=== PATIENT | male | born 1980 | race Hispanic/Latino ===

== ENCOUNTER 2019-01-31 17:19 | Emergency (ER) | payer MEDICAID, SELFPAY ==
[~2019-01-31] VITALS: Ht 193 cm; Wt 150.0 kg
[2019-01-31] MEDS ORDERED: PANTOPRAZOLE 40MG INJ (PROTONIX) (C9113) IV ONE (18:15)
[2019-01-31 18:45] LABS: BASO # 0.1 10^3/uL (0.0-0.2); BASO % 0.4 % (0.0-1.0); EOS # 0.2 10^3/uL (0.0-0.50); EOS % 1.3 % (0.0-3.0); HEMATOCRIT 49.5 % (42.0-52.0); LYMPH # 2.7 10^3/uL (1.5-4.5); LYMPH % 24.3 % (24.0-44.0); MEAN CORPUSCULAR HEMOGLOBIN 30.1 pg (27.0-33.0); MEAN CORPUSCULAR HGB CONC 34.3 g/dl (32.0-36.5); MEAN CORPUSCULAR VOLUME 87.6 fl (80.0-96.0); MONO % 8.9 % (0.0-5.0); NEUTROPHILS # 7.2 10^3/uL (1.8-7.7); NEUTROPHILS % 64.4 % (36.0-66.0); PLATELET COUNT, AUTOMATED 202 10^3/uL (150-450); RED BLOOD COUNT 5.65 10^6/uL (4.30-6.10); WHITE BLOOD COUNT 11.2 10^3/uL (4.0-10.0)
[2019-01-31 19:21] LABS: ALBUMIN 3.9 GM/DL (3.2-5.2); ALT/SGPT 131 U/L (12-78); BILIRUBIN,DIRECT 0.2 MG/DL (0.0-0.2); BILIRUBIN,TOTAL 0.4 MG/DL (0.2-1.0); BLOOD UREA NITROGEN 15 MG/DL (7-18); CALCIUM LEVEL 8.5 MG/DL (8.5-10.1); CARBON DIOXIDE LEVEL 27 MEQ/L (21-32); CHLORIDE LEVEL 106 MEQ/L (98-107); CPK CREATINE PHOSPHOKINASE 329 U/L (39-308); GLOMERULAR FILTRATION RATE > 60.0 (>60); GLUCOSE, FASTING 102 MG/DL (70-100); LIPASE 159 U/L (73-393); MB/CK RELATIVE INDEX 0.79 (< OR =4); POTASSIUM SERUM 3.4 MEQ/L (3.5-5.1); SODIUM LEVEL 142 MEQ/L (136-145); TOTAL PROTEIN 7.4 GM/DL (6.4-8.2); TROPONIN I 0.05 NG/ML (< 0.10)
--- NOTE | 2019-01-31 20:26 | REP ---
Clinical: Right upper quadrant pain. Technique: Real time vaca scale ultrasound examination using curved array transducer. Findings: Diffuse fatty infiltration to the liver noted without focal hepatic lesion. Visualized portions of the pancreas are unremarkable but limited due to interposed bowel gas and body habitus. The gallbladder is normal and without gallstones, wall thickening, or pericholecystic fluid. No biliary ductal dilatation is appreciated and the common bile duct measures 4.3 mm diameter. The right kidney is normal in reniform shape without hydronephrosis and measures 13.8 x 5.6 x 6.1 cm. Impression: Hepatic steatosis. Normal gallbladder and biliary system. Electronically Signed by Otf Olvera MD 01/31/2019 08:18 P
[2019-01-31] MEDS ORDERED: ISOVUE-370 76% 100ML VIAL (Q9967) As Ordered ONE (20:54)
[2019-01-31] MEDS ORDERED: cloNIDine 0.1 MG TAB PO ONE (21:00)
--- NOTE | 2019-01-31 21:30 | ECGEPIP ---
Stationary ECG Study [facility] - ED Test Date: 2019-01-31 Pat Name: SYDNEE MONTENEGRO Department: Room: - Gender: M [employer]: [facility] : 1980 Requested By: VINEET DOMINGUEZ PA-C Order Number: [id number] Reading MD: Pepe Thomas Measurements Intervals [place] Rate: 77 P: 34 KS: 186 QRS: -16 QRSD: 117 T: 127 QT: 395 QTc: 449 Interpretive Statements SINUS RHYTHM POSSIBLE LEFT ATRIAL ENLARGEMENT Incomplete right bundle branch block LEFT VENTRICULAR HYPERTROPHY AND ST-T CHANGE Comparison tracing not on file Electronically Signed On 01-31-2019 21:30:28 EDT by Pepe Thomas
--- NOTE | 2019-01-31 21:35 | REP ---
Clinical: Pain and difficulty swallowing. Technique: Axial contrast enhanced images from the skull base to the thoracic inlet with coronal and sagittal re-formations using 100 ml Isovue 370 intravenous contrast material. Findings: The nasopharynx, oropharynx, hypopharynx and trachea and esophagus to the level of the thoracic inlet appear normal. The airway remains patent, midline and unremarkable. The epiglottis is normal. The esophagus is unremarkable. The surrounding soft tissues including parapharyngeal and retropharyngeal soft tissues structures are symmetric and normal. Parapharyngeal spaces and associated neurovascular structures and surrounding fat are normal. No significant adenopathy. Bilateral parotid and submandibular glands are normal. The osseous structures are intact. The sinuses and mastoid air cells are clear. Impression: Normal contrast enhanced CT of the neck. Electronically Signed by Otf Olvera MD 01/31/2019 09:27 P
[2019-01-31] MEDS ORDERED: LABETALOL HCL 100 MG/20 ML VIAL IV STA (22:29)
[2019-01-31 22:56] VITALS: BP 202/110
[2019-01-31] MEDS ORDERED: PROT1TAB2 PO (23:46)
[2019-01-31] MEDS ORDERED: SUCR1SS PO (23:46)
[2019-01-31] MEDS ORDERED: LOSA50TA88 PO (23:46)
[2019-01-31] MEDS ORDERED: HYDR25TAB PO (23:46)
[2019-01-31 23:55] VITALS: BP 174/86
== END 2019-01-31 23:59 | disposition home or self-care (01) ==
LOC: M ED 17:19
DX: I10 Essential (primary) hypertension (principal); K21.9 Gastro-esophageal reflux disease without esophagitis; R94.5 Abnormal results of liver function studies; K20.9 Esophagitis, unspecified; K22.2 Esophageal obstruction; I45.19 Other right bundle-branch block; I51.7 Cardiomegaly; G47.00 Insomnia, unspecified; E66.9 Obesity, unspecified; K76.0 Fatty (change of) liver, not elsewhere classified; Z72.0 Tobacco use; Z88.0 Allergy status to penicillin
CPT/HCPCS: 70491; 76705; 80048; 80076; 81001; 82550; 82553; 83690; 85025; 87880; 93005; 96374; 96375; 99284; C9113; Q9967

== ENCOUNTER → 2019-03-19 | Outpatient (REF) | payer OTHER ==
[~2019-03-19] MED LIST: HYDR25TAB PO; LOSA50TA88 PO; PROT1TAB2 PO; SUCR1SS PO
[2019-03-19 12:12] LABS: BASO % 0.2 % (0.0-1.0); EOS # 0.2 10^3/uL (0.0-0.50); EOS % 1.7 % (0.0-3.0); HEMATOCRIT 48.2 % (42.0-52.0); HEMOGLOBIN 16.4 g/dl (13.5-17.5); LYMPH # 2.6 10^3/uL (1.5-4.5); LYMPH % 28.2 % (24.0-44.0); MEAN CORPUSCULAR HEMOGLOBIN 30.1 pg (27.0-33.0); MEAN CORPUSCULAR VOLUME 88.6 fl (80.0-96.0); MONO # 0.7 10^3/uL (0.0-0.8); MONO % 7.7 % (0.0-5.0); NEUTROPHILS # 5.6 10^3/uL (1.8-7.7); NEUTROPHILS % 61.8 % (36.0-66.0); PLATELET COUNT, AUTOMATED 237 10^3/uL (150-450); RED BLOOD COUNT 5.44 10^6/uL (4.30-6.10); WHITE BLOOD COUNT 9.1 10^3/uL (4.0-10.0)
[2019-03-19 12:32] LABS: ALBUMIN 4.1 GM/DL (3.2-5.2); ALT/SGPT 71 U/L (12-78); BILIRUBIN,TOTAL 0.4 MG/DL (0.2-1.0); BLOOD UREA NITROGEN 11 MG/DL (7-18); CARBON DIOXIDE LEVEL 27 MEQ/L (21-32); CHLORIDE LEVEL 104 MEQ/L (98-107); CHOLESTEROL LEVEL 169 MG/DL (<200); CHOLESTEROL RISK RATIO 4.567 (<5); FREE T4 0.93 NG/DL (0.76-1.46); GLOMERULAR FILTRATION RATE > 60.0 (>60); GLUCOSE, FASTING 109 MG/DL (70-100); HDL CHOLESTEROL 37 MG/DL (>40); LDL CHOLESTEROL 94 MG/DL (<100); NON-HDL-C 132 MG/DL; POTASSIUM SERUM 3.5 MEQ/L (3.5-5.1); SODIUM LEVEL 139 MEQ/L (136-145); TOTAL PROTEIN 7.5 GM/DL (6.4-8.2); TRIGLYCERIDES LEVEL 188 MG/DL (<150)
[2019-03-19 12:34] LABS: TOTAL 25(OH) VITAMIN D 24.6 NG/ML (30.0-100.0)
[2019-03-19 12:36] LABS: APPEARANCE, URINE CLEAR (CLEAR); BACTERIA, URINE AUTO NEGATIVE (NEGATIVE); BILIRUBIN, URINE AUTO NEGATIVE (NEGATIVE); BLOOD, URINE BLOOD 1+ (NEGATIVE); COLOR, URINE YELLOW (YELLOW); GLUCOSE, URINE (UA) AUTO NEGATIVE (NEGATIVE); KETONE, URINE AUTO NEGATIVE (NEGATIVE); LEUKOCYTE ESTERASE, URINE AUTO NEGATIVE (NEGATIVE); NITRITE, URINE AUTO NEGATIVE (NEGATIVE); PROTEIN, URINE AUTO NEGATIVE (NEGATIVE); RBC, URINE AUTO 1 /HPF (0-3); SPECIFIC GRAVITY URINE AUTO 1.011 (1.002-1.035); SQUAMOUS EPITHELIAL CELL UR AU 0 /HPF (0-6); UROBILINOGEN, URINE AUTO 0.2 mg/dL (0.0-2.0); WBC, URINE AUTO 0 /HPF (0-3)
[2019-03-19 13:33] LABS: HEMOGLOBIN A1c 6.2 %
[2019-03-21 00:06] LABS: Lyme Disease IgG/IgM Antibodie <0.91 ISR (0.00-0.90); Lyme Disease IgM Ab Quantitati <0.80 index (0.00-0.79)
== END ==
LOC: M LAB REF 11:42
PROVIDERS: ATTEND Family Medicine
DX: Z13.228 Encounter for screening for other metabolic disorders (principal)

== ENCOUNTER → 2019-07-23 | Outpatient (CLI) | payer OTHER ==
--- NOTE | 2019-07-24 01:32 | REP ---
Clinical: Lower back pain. Technique: AP, lateral, bilateral oblique and coned-down views of the lumbosacral spine. Findings: Alignment and lordosis maintained. Mild/moderate multilevel degenerative changes include endplate sclerosis with marginal spurring/osteophyte formation as well as very minimal disc space narrowing primarily involving L5-S1 and L1-2. No acute fracture / compression injury or subluxation. Impression: Mild/moderate multilevel degenerative spondylosis. Electronically Signed by Otf Olvera MD 07/24/2019 01:24 A
== END ==
LOC: M WUC 17:22
PROVIDERS: ATTEND Physician Assistant
DX: M54.5 Low back pain (principal)

== ENCOUNTER → 2019-10-10 | Outpatient (CLI) | payer OTHER ==
--- NOTE | 2019-10-10 18:33 | REP ---
Right wrist series: Four views. History: Wrist pain. Findings: Four views right wrist demonstrate early osteophytic lipping at the first carpometacarpal articulation. There are two accessory ossicles adjacent to the fifth carpometacarpal articulation. There is a small accessory ossicle dorsally on the lateral radiograph at the level of the triquetrum. This may be an old injury. No acute fracture is seen. Impression: No acute fracture seen. Accessory ossicle dorsally at the level of the triquetrum. Accessory ossicles adjacent to the fifth carpometacarpal articulation and mild spurring at the first carpometacarpal articulation. Electronically Signed by Yfn Nelson MD 10/10/2019 08:01 P
== END ==
LOC: M WUC 17:56
PROVIDERS: ATTEND Physician Assistant
DX: M25.741 Osteophyte, right hand (principal)

== ENCOUNTER → 2019-10-17 | Outpatient (REF) | payer OTHER, MEDICAID ==
[2019-10-17 18:27] LABS: ALBUMIN 3.6 GM/DL (3.2-5.2); ALT/SGPT 76 U/L (12-78); BILIRUBIN,TOTAL 0.6 MG/DL (0.2-1.0); BLOOD UREA NITROGEN 12 MG/DL (7-18); CALCIUM LEVEL 8.3 MG/DL (8.5-10.1); CARBON DIOXIDE LEVEL 32 MEQ/L (21-32); CHLORIDE LEVEL 101 MEQ/L (98-107); CREATININE FOR GFR 0.85 MG/DL (0.70-1.30); GLOMERULAR FILTRATION RATE > 60.0 (>60); GLUCOSE, FASTING 145 MG/DL (70-100); POTASSIUM SERUM 3.7 MEQ/L (3.5-5.1); SODIUM LEVEL 141 MEQ/L (136-145); TOTAL PROTEIN 7.2 GM/DL (6.4-8.2)
[2019-10-17 18:48] LABS: HEMOGLOBIN A1c 6.1 %
== END ==
LOC: M LAB REF 17:13
PROVIDERS: ATTEND Family Medicine
DX: R73.03 Prediabetes (principal)

== ENCOUNTER → 2019-11-10 | Outpatient (CLI) | payer OTHER ==
[~2019-11-10] MED LIST changes: +CONRAY-43 43% 50ML VIAL (Q9960) As Ordered ONE; +LIDOCAINE 1% MDV 20ML VIAL As Ordered ONE; +methylPREDNISolone SUSP 40 MG/ML (DEPO-medrol) VIAL (J1030) As Ordered ONE
--- NOTE | 2019-11-10 19:05 | REP ---
RIGHT EXTENSOR CARPI ULNARIS AT THE INSERTION SITE INJECTION The procedure was performed under the direct supervision of Dr. Nelson. The benefits and risks including but not limited to pain infection bleeding and anaphylaxis were explained to the patient and informed consent was obtained. The right extensor carpi ulnaris insertion site was localized using fluoroscopic guidance. The skin was prepped and draped in a sterile fashion. 1% lidocaine was used as a local anesthetic. Using fluoroscopic guidance a 25-gauge needle was inserted. 0.5 ml of Conray 43 was injected to verify placement. A ml of a solution containing 1 ml of 1% lidocaine and 1 ml of Depo-Medrol 40 mg injected. The needle was then removed. The patient tolerated the procedure well and there were no immediate complications. Less than 6 seconds of fluoroscopy time was utilized for this procedure. Electronically Signed by ADI Pack 11/10/2019 04:03 P Electronically Signed by Yfn Nelson MD 11/10/2019 06:55 P
== END ==
LOC: M RADPRO 11:24
PROVIDERS: ATTEND Orthopaedic Surgery Sports Medicine
DX: M70.841 Other soft tissue disorders related to use, overuse and pressure, right hand (principal)
CPT/HCPCS: 20606; 77002; J1030; Q9960

== ENCOUNTER → 2020-01-09 | Outpatient (REF) | payer OTHER ==
[~2020-01-09] MED LIST changes: -CONRAY-43 43% 50ML VIAL (Q9960) As Ordered ONE; -LIDOCAINE 1% MDV 20ML VIAL As Ordered ONE; -methylPREDNISolone SUSP 40 MG/ML (DEPO-medrol) VIAL (J1030) As Ordered ONE
[2020-01-09 17:58] LABS: ALBUMIN 3.8 GM/DL (3.2-5.2); ALT/SGPT 87 U/L (12-78); BASO # 0.1 10^3/uL (0.0-0.2); BASO % 0.5 % (0.0-1.0); BILIRUBIN,TOTAL 0.4 MG/DL (0.2-1.0); BLOOD UREA NITROGEN 13 MG/DL (7-18); CALCIUM LEVEL 8.9 MG/DL (8.5-10.1); CARBON DIOXIDE LEVEL 34 MEQ/L (21-32); CHLORIDE LEVEL 101 MEQ/L (98-107); CHOLESTEROL LEVEL 176 MG/DL (<200); CHOLESTEROL RISK RATIO 5.333 (<5); CREATININE FOR GFR 0.86 MG/DL (0.70-1.30); EOS # 0.3 10^3/uL (0.0-0.5); EOS % 2.9 % (0.0-3.0); GLOMERULAR FILTRATION RATE > 60.0 (>60); GLUCOSE, FASTING 111 MG/DL (70-100); HDL CHOLESTEROL 33 MG/DL (>40); HEMATOCRIT 50.3 % (42.0-52.0); HEMOGLOBIN 16.7 g/dl (13.5-17.5); LDL CHOLESTEROL 87 MG/DL (<100); LYMPH # 2.8 10^3/uL (1.5-5.0); LYMPH % 27.3 % (24.0-44.0); MEAN CORPUSCULAR HEMOGLOBIN 29.1 pg (27.0-33.0); MEAN CORPUSCULAR HGB CONC 33.2 g/dl (32.0-36.5); MEAN CORPUSCULAR VOLUME 87.8 fl (80.0-96.0); MONO # 0.9 10^3/uL (0.0-0.8); MONO % 8.3 % (0.0-5.0); NEUTROPHILS # 6.3 10^3/uL (1.5-8.5); NEUTROPHILS % 60.3 % (36.0-66.0); NON-HDL-C 143 MG/DL; PLATELET COUNT, AUTOMATED 254 10^3/uL (150-450); POTASSIUM SERUM 3.3 MEQ/L (3.5-5.1); RED BLOOD COUNT 5.73 10^6/uL (4.30-6.10); SODIUM LEVEL 139 MEQ/L (136-145); TOTAL PROTEIN 7.6 GM/DL (6.4-8.2); TRIGLYCERIDES LEVEL 279 MG/DL (<150); WHITE BLOOD COUNT 10.4 10^3/uL (4.0-10.0)
[2020-01-09 18:00] LABS: HEMOGLOBIN A1c 6.6 %
[2020-01-09 18:01] LABS: TOTAL 25(OH) VITAMIN D 22.7 NG/ML (30.0-100.0)
== END ==
LOC: M LAB REF 17:01
PROVIDERS: ATTEND Family Medicine
DX: R73.03 Prediabetes (principal)

== ENCOUNTER → 2020-01-31 | Outpatient (CLI) | payer OTHER ==
--- NOTE | 2020-02-01 06:36 | REP ---
CHEST, PA AND LATERAL: No comparisons. There is no evidence of acute infiltrate. No pleural effusion is seen. The heart is normal in size. The mediastinal silhouette is unremarkable. The visualized osseous structures are intact. There is diffuse degenerative changes of the spine. There are old right rib fractures noted. IMPRESSION: No acute pulmonary disease. Electronically Signed by Bhavin Casanova MD 02/01/2020 10:54 A
== END ==
LOC: M WUC 14:58
PROVIDERS: ATTEND Physician Assistant
DX: R05 Cough (principal)
CPT/HCPCS: 71046; 87502; U0002

== ENCOUNTER → 2020-02-24 | Outpatient (CLI) | payer OTHER ==
[2020-02-24 17:30] LABS: BASO % 0.2 % (0.0-1.0); EOS # 0.2 10^3/uL (0.0-0.5); EOS % 2.2 % (0.0-3.0); HEMOGLOBIN 15.5 g/dl (13.5-17.5); LYMPH # 2.4 10^3/uL (1.5-5.0); LYMPH % 27.7 % (24.0-44.0); MEAN CORPUSCULAR HEMOGLOBIN 28.8 pg (27.0-33.0); MEAN CORPUSCULAR VOLUME 87.2 fl (80.0-96.0); MONO # 0.7 10^3/uL (0.0-0.8); MONO % 8.7 % (0.0-5.0); NEUTROPHILS # 5.1 10^3/uL (1.5-8.5); NEUTROPHILS % 59.7 % (36.0-66.0); PLATELET COUNT, AUTOMATED 238 10^3/uL (150-450); RED BLOOD COUNT 5.39 10^6/uL (4.30-6.10); WHITE BLOOD COUNT 8.5 10^3/uL (4.0-10.0)
[2020-02-24 17:44] LABS: ALBUMIN 3.7 GM/DL (3.2-5.2); ALT/SGPT 71 U/L (12-78); BILIRUBIN,TOTAL 0.5 MG/DL (0.2-1.0); BLOOD UREA NITROGEN 12 MG/DL (7-18); CARBON DIOXIDE LEVEL 32 MEQ/L (21-32); CHLORIDE LEVEL 101 MEQ/L (98-107); CPK CREATINE PHOSPHOKINASE 297 U/L (39-308); CREATININE FOR GFR 0.87 MG/DL (0.70-1.30); FREE T4 1.03 NG/DL (0.76-1.46); GLOMERULAR FILTRATION RATE > 60.0 (>60); GLUCOSE, FASTING 85 MG/DL (70-100); MB/CK RELATIVE INDEX 0.67 (< OR =4); NT-PRO BNP 11 PG/ML (<125); POTASSIUM SERUM 3.7 MEQ/L (3.5-5.1); SODIUM LEVEL 139 MEQ/L (136-145); TOTAL PROTEIN 7.5 GM/DL (6.4-8.2); TROPONIN I < 0.02 NG/ML (< 0.10)
== END ==
LOC: M WUC 15:47
PROVIDERS: ATTEND Physician Assistant
DX: R06.02 Shortness of breath (principal)